=== PATIENT | male | born 1990 | race Caucasian/White ===

== ENCOUNTER 2018-07-24 16:06 | Emergency (ER) | payer MEDICAID | END 2018-07-24 19:50 | disposition home or self-care (01) | LOC: FTE 16:06 | DX: S50.851A Superficial foreign body of right forearm, initial encounter (principal); W25.XXXA Contact with sharp glass, initial encounter; Y92.9 Unspecified place or not applicable | CPT/HCPCS: 73090; 73090-RT; 99283-25 ==